=== PATIENT | female | born 1995 | race Caucasian/White ===

== ENCOUNTER 2021-12-14 09:37 | Emergency (ER) | payer OTHER ==
[2021-12-14 10:54] LABS: BASOPHIL 0.4 % (0-2); EOSINOPHIL 0.4 % (0-5); HCT 41.2 % (37.0-47.0); HGB 13.9 g/dl (12.5-16.0); LYMPHOCYTE 19.9 % (15-48); MCH 30.4 pg (25.0-31.0); MCHC 33.7 g/dL (32.0-36.0); MCV 90.2 fL (78.0-100.0); MONOCYTE 9.6 % (0-12); NEUTROPHIL 68.7 % (41-80); NRBC 0; PLT 238 K/uL (150-400); RBC 4.57 M/uL (4.20-5.40); RDW 11.9 % (11.5-14.0); WBC 9.2 K/uL (4.0-10.5)
[2021-12-14 11:28] LABS: ALBUMIN 4.2 g/dL (3.4-5.0); BILIRUBIN - TOTAL 0.4 mg/dL (0.2-1.0); BUN/CREAT RATIO (CALC) 14.4 RATIO; CREATININE 0.9 mg/dL (0.51-0.95); POTASSIUM 4.2 mmol/L (3.5-5.1); TOTAL PROTEIN 8.2 g/dL (6.4-8.2)
[2021-12-14] MEDS ORDERED: LOPRESSOR25 MG PO (13:08)
== END 2021-12-14 13:38 | disposition home or self-care (01) ==
LOC: FER 09:37
PROVIDERS: Emergency Medicine
DX: R00.0 Tachycardia, unspecified (principal); J45.909 Unspecified asthma, uncomplicated
CPT/HCPCS: 36415; 71275; 80053; 84443; 84484; 85025; 85379; 93005; J1885; J7030; Q9967